=== PATIENT | female | born 1950 | race Caucasian/White ===

== ENCOUNTER 2018-12-14 07:32 | Day surgery (SDC) | payer MEDICARE, OTHER ==
[~2018-12-14] VITALS: Ht 152.4 cm; Wt 80.7 kg
[~2018-12-14 07:32] MED LIST: ACID REDUCER75 MG PO; B-12500 MCG PO; CALCIUM500 MG PO; OMEGA-3100 MG PO; OMEPRAZOLE20 MG PO; ZESTRIL5 MG PO
--- NOTE | 2018-12-14 08:39 | NUR ---
12/14/18 0839 Kira Kathleen 0835- PT TO PACU IN LL POSITION. EYES CLOSED. RESPONDS TO VOICE. DENIES PAIN OR NAUSEA. ORIENTED TO SITUATION. BREATHING EASY AND UNLABORED. SP02 >95% ON 3 L VIA NC.
--- NOTE | 2018-12-14 09:50 | NUR ---
WAS UNABLE TO VISIT WITH PT BEFORE SCOPE, BUT CONNECTED WITH PTS' LILIANA. HE WAS AT EASE, WAITING FOR DR RAGLAND TO COME AND UPDATE HIM. THANKED ME FOR STOPPING, WILL FOLLOW NEEDED
--- NOTE | 2018-12-15 14:24 | PATH ---
[facility] [address] [facility] [place], [place] [address] Signed SPECIMEN(S): A RECTUM SPECIMEN SOURCE: A. RECTUM CLINICAL HISTORY: Screening. Diarrhea. Post: Diverticulosis. MICROSCOPIC DESCRIPTION: Histologic sections of all submitted blocks are examined by light microscopy. These findings, together with the gross examination, support the pathologic diagnosis. FINAL PATHOLOGIC DIAGNOSIS: Rectum, biopsy: - Colorectal mucosa with increased intraepithelial lymphocytes, see comment. - Negative for dysplasia or malignancy. COMMENT: Sections of the rectal biopsy demonstrate colorectal mucosa with increased intraepithelial lymphocytes (approximately 30 intraepithelial lymphocytes counted per 100 surface epithelial cells) and a mild lymphoplasmacytic infiltrate within the lamina propria. There is no granuloma formation, cryptitis, crypt abscesses, or crypt architectural distortion. No viral cytopathic change is seen. The findings present are suggestive of mild lymphocytic colitis. Clinical correlation is required. NAL:cml:C2NR GROSS DESCRIPTION: The specimen, labeled "DZ, rectum biopsy," per requisition. Is received in formalin and consists of three laws soft tissue fragment(s) that measure 0.1-0.5 cm in greatest dimension. The specimen is entirely submitted in cassette (A1). FB (under the direct supervision of a pathologist) The Gross Description was prepared using a voice recognition system. The report was reviewed for accuracy; however, sound-alike word errors, addition and/or deletions may occur. If there is any question about this report, please contact Client Services. PERFORMING LABORATORY: The technical component was performed by [employer], Maverick Ray, PATIENT NAME: AMEE MURILLO PATHOLOGY DATE OF : 50 REPORT #: [id number] PHYSICIAN: KWAN NUÑEZ PCP: TOM ALDANA MD REPORT IS CONFIDENTIAL AND NOT TO BE RELEASED WITHOUT AUTHORIZATION [facility] [address] [place], [place] [address] [place] [address] (Research Professor: Monique Maurer MD; CLIA# [id number]). Professional interpretation was performed by [facility], [address] [address] (Research Professor: Silver Silverman MD; CLIA# [id number]). Diagnostician: Lawanda Camarena MD Pathologist Electronically Signed 12/15/2018 Copies: ~ PATIENT NAME: AMEE MURILLO PATHOLOGY DATE OF : 50 REPORT #: [id number] PHYSICIAN: KWAN NUÑEZ PCP: TOM ALDANA MD REPORT IS CONFIDENTIAL AND NOT TO BE RELEASED WITHOUT AUTHORIZATION
--- NOTE | 2018-12-15 18:53 | OR ---
[facility] [address] [place], [place] [address] Signed DATE OF OPERATION: 12/14/2018 SURGEON: Arvin Ragland MD PREOPERATIVE DIAGNOSES: Diarrhea, episodic abdominal pain, and heme-positive stool. POSTOPERATIVE DIAGNOSIS: Diverticulosis. No evidence of polyps or colitis. PROCEDURE: Total colonoscopy to cecum with biopsy of rectum. ANESTHESIA: Intravenous sedation, fentanyl 100 mcg, Versed 4 mg. INDICATION: This 68-year-old white woman is a patient of Dr. Aldana and has had complaints of diarrhea and noted to have heme-positive stool. She has noted no overt blood per rectum. She has no family history of colon cancer. She did undergo colonoscopy at age 55, which was said to be normal. She is admitted at this time to undergo colonoscopy to better characterize the problem of diarrhea and heme-positive stool. She understands the risk of bleeding, infection, and perforation and wished to proceed. FINDINGS: The prep was good. Complete colonoscopy was undertaken to the cecum without question. She had numerous diverticula of the sigmoid and left colon. Scattered diverticula elsewhere. There was no sign of colitis, polyps, or other abnormality. DESCRIPTION OF PROCEDURE: The patient was brought to the endoscopy suite and placed in lateral decubitus position, given intravenous sedation to the point of slurred speech and nystagmus with full cardiopulmonary monitoring. Digital rectal examination was normal. An Olympus video colonoscope was passed in the rectum and manipulated throughout the colon, noting diverticular change of the sigmoid and left colon initially. Scope was advanced beyond this ultimately to the cecum. The ileocecal valve and appendiceal orifice were normal. Irrigation was undertaken. The scope was carefully withdrawn and examination throughout showed no sign of abnormality other than scattered diverticula of the right and transverse colon, a more numerous diverticula of the left and sigmoid Electronically Signed By: ARVIN RAGLAND MD 12/15/18 1853 PATIENT NAME: AMEE MURILLO OPERATIVE REPORT DATE OF : 50 REPORT #: [id number] PHYSICIAN: ARVIN RAGLAND MD PCP: TOM ALDANA MD REPORT IS CONFIDENTIAL AND NOT TO BE RELEASED WITHOUT AUTHORIZATION [facility] [address] [place], [place] [address] Signed colon. Retroflexed view of the rectum was normal. A biopsy was obtained nevertheless of the rectum to assess for occult colitis. Scope was straightened, withdrawn, removed, and the patient was taken to recovery room in good condition. CONCLUDING DIAGNOSIS: Diverticular disease, most likely cause of her symptoms. PLAN: I would recommend [employer] one scoop p.o. daily. We will check the pathology report to assess for occult colitis, however, unlikely. Repeat colonoscopy would be recommended in 10 years, sooner if clinically indicated. She will return to the ongoing care of Dr. Aldana otherwise. MD LISBETH Velasquez/NATHALIE /[id number] cc: Dr. Aldana Copies: ~ Electronically Signed By: ARVIN RAGLAND MD 12/15/18 1853 PATIENT NAME: MURILLOAMEE OPERATIVE REPORT DATE OF : 50 REPORT #: [id number] PHYSICIAN: ARVIN RAGLAND MD PCP: TOM ALDANA MD REPORT IS CONFIDENTIAL AND NOT TO BE RELEASED WITHOUT AUTHORIZATION
== END 2018-12-14 09:27 | disposition home or self-care (01) ==
LOC: OPS 07:32 → DS 07:36 → OPS 08:30 → DS 08:30 → OPS 09:27
PROVIDERS: Surgery
PROC: 0DBP8ZX Excision of Rectum, Via Natural or Artificial Opening Endoscopic, Diagnostic (ICD-10-PCS; principal; 2018-12-14 08:30)
DX: K57.30 Diverticulosis of large intestine without perforation or abscess without bleeding (principal); R19.7 Diarrhea, unspecified; R19.5 Other fecal abnormalities; I10 Essential (primary) hypertension; K21.0 Gastro-esophageal reflux disease with esophagitis
CPT/HCPCS: 99153; G0500; J2250; J3010; J7121

== ENCOUNTER 2022-03-14 15:40 | Emergency (ER) | payer MEDICARE, OTHER ==
[~2022-03-14] VITALS: Ht 152.4 cm; Wt 81.7 kg
[2022-03-14] MEDS ORDERED: AMLODIPINE BESY10 MG PO (16:00)
[2022-03-14] MEDS ORDERED: CEPHALEXIN500 MG PO (18:54)
== END 2022-03-14 19:20 | disposition home or self-care (01) ==
LOC: ED 15:40
PROC: 0HQGXZZ Repair Left Hand Skin, External Approach (ICD-10-PCS; principal; 2022-03-14)
DX: S66.821A Laceration of other specified muscles, fascia and tendons at wrist and hand level, right hand, initial encounter (principal); Z23 Encounter for immunization; W01.0XXA Fall on same level from slipping, tripping and stumbling without subsequent striking against object, initial encounter
CPT/HCPCS: 12004; 90471; 90715; 99282-25; A9270